=== PATIENT | female | born 1995 | race Hispanic/Latino ===

== ENCOUNTER 2021-06-19 20:04 | Emergency (ER) | payer BC ==
[~2021-06-19] VITALS: Ht 157.5 cm; Wt 133.0 kg
--- OUTSIDE RECORDS SUMMARY | 2021-06-19 20:12 | XMS ---
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 E.Mckayla VISIT COUNT (12 MO.) 1 [facility] TOTAL 1 NOTE: Visits indicate total known visits. ED/UCC VISIT TRACKING (12 MO.) 06/19/2021 20:05 [facility]CELLO Irizarry TYPE: Emergency COMPLAINT: - SOB INPATIENT VISIT TRACKING (12 MO.) 12/13/2020 17:15 [facility] [place] TYPE: Internal Medicine DIAGNOSES: - Pneumonia due to coronavirus disease 2019 - Hypoxemia - COVID-19 [email or web address]
== END 2021-06-19 22:10 | disposition home or self-care (01) ==
LOC: ED 20:04
DX: J40 Bronchitis, not specified as acute or chronic (principal); Z20.822 Contact with and (suspected) exposure to COVID-19; Z88.0 Allergy status to penicillin; Z88.8 Allergy status to other drugs, medicaments and biological substances
CPT/HCPCS: 99283; C9803; U0003

== ENCOUNTER 2022-12-10 06:46 | Day surgery (SDC) | payer OTHER ==
[~2022-12-10] VITALS: Ht 157.5 cm; Wt 133.0 kg
--- NOTE | ~2022-12-10 | OR ---
[facility] [address] [place], [place] [address] Draft DATE OF OPERATION: 12/10/2022 SURGEON: Graeme Henson, PROCEDURES: Hysteroscopy, dilation and curettage. PREOPERATIVE DIAGNOSES: Abnormal uterine bleeding, morbid obesity. POSTOPERATIVE DIAGNOSES: Abnormal uterine bleeding, morbid obesity. ANESTHESIA: Monitored anesthesia care. BLOOD LOSS: 15 mL. FINDINGS: Thickened appearing endometrial lining. Bilateral tubal ostia visualized. Polypoid appearance of lower uterine segment. INDICATIONS: Prolonged spotting, endometrial biopsy attempted in office but unable to pass through the internal cervical os. Risks, benefits, alternatives to hysteroscopy for endometrial tissue sampling were discussed. Reviewed OR versus office procedure, elected to proceed with OR. Consents were signed after all questions were answered to the best of my ability. PROCEDURE IN DETAIL: The patient was taken back to the operating room where she was positioned in dorsal lithotomy under monitored anesthesia care. She was prepped and draped in normal sterile fashion. Bladder was drained. Anterior lip of the cervix was grasped with an Allis clamp and easily sequentially dilated with Hegar dilators up to a size 7 to accommodate a 6.4 mm scope. Scope was then introduced into the uterine cavity without any difficulty or resistance with findings as noted above. MyoSure Lite device was used to circumferentially curette endometrial lining using Aquilex fluid management system and normal saline as a distending media. All instrumentation was then removed. Fluid deficit was noted to be 320 mL. Allis was removed from the cervix. Excellent PATIENT NAME: ANATOLY RICE OPERATIVE REPORT DATE OF : [birth year] REPORT #: [id number] PHYSICIAN: GRAEME HENSON DO PCP: MARILU YUNG PA-C REPORT IS CONFIDENTIAL AND NOT TO BE RELEASED WITHOUT AUTHORIZATION [facility] [address] [facility] [place] [facility] [place] [address] Draft hemostasis was noted. Sponge and instrument counts were correct. The patient was taken to recovery in stable and satisfactory condition with plans for followup in office after pathology available. DO JAKE Calvin/HIRAL /[id number] Copies: ~ PATIENT NAME: ANATOLY RICE OPERATIVE REPORT DATE OF : [birth year] REPORT #: [id number] PHYSICIAN: GRAEME HENSON DO PCP: MARILU YUNG PA-C REPORT IS CONFIDENTIAL AND NOT TO BE RELEASED WITHOUT AUTHORIZATION
[2022-12-10 06:59] VITALS: BP 137/71
[2022-12-10] MEDS ORDERED: COZAAR25 MG PO (07:00)
[2022-12-10] MEDS ORDERED: B COMPLEX1 EACH PO (07:01)
--- NOTE | 2022-12-10 10:05 | NUR ---
12/10/22 1005 Lila Lehman 1001-PATIENT ARRIVED TO PACU ON RA RR EVEN. PATIENT AWAKE DENIES PAIN OR NAUSEA REPORTS "JUST SOME CRAMPING" RA 98% RR EVEN. RICK PAD PLACED BENEATH CDI. SB/SR
[2022-12-10] MEDS ORDERED: IBUPROFEN800 MG PO (10:20)
[2022-12-10 10:45] VITALS: BP 143/89
--- NOTE | 2022-12-11 12:38 | PATH ---
[facility] [address] [place], [place] [address] Signed SPECIMEN(S): A ENDOMETRIAL CURETTINGS SPECIMEN SOURCE: A. ENDOMETRIAL CURETTINGS CLINICAL HISTORY: Pre: Abnormal uterine bleeding, dyspareunia. FINAL PATHOLOGIC DIAGNOSIS: Endometrial curettings: - Proliferative endometrium, negative for hyperplasia or atypia. JVR:jaun:C2NR MICROSCOPIC EXAMINATION: Histologic sections of all submitted blocks are examined by light microscopy. These findings, together with the gross examination, support the pathologic diagnosis. GROSS DESCRIPTION: The specimen, labeled and designated "Onofre Aragon, endometrial curettings," is received in formalin and consists of multiple fragments of red-mello soft tissue (2.9 x 2.2 x 0.4 cm in aggregate). The specimen is submitted entirely in cassette (A1). VB (under the direct supervision of a pathologist) The Gross Description was prepared using a voice recognition system. The report was reviewed for accuracy; however, sound-alike word errors, addition and/or deletions may occur. If there is any question about this report, please contact Client Services. PERFORMING LABORATORY: The technical component was performed by [facility], [address] [place] [id number] (CLIA# [id number]). Professional interpretation was performed by [facility], [address] [place] [id number] (CLIA#: [id number]). Diagnostician: Yuval Quigley MD Pathologist Electronically Signed 12/11/2022 Copies: PATIENT NAME: ANATOLY RICE PATHOLOGY DATE OF : [birth year] REPORT #: [id number] PHYSICIAN: SANDRA TAPIA PCP: MARILU YUNG PA-C REPORT IS CONFIDENTIAL AND NOT TO BE RELEASED WITHOUT AUTHORIZATION [address] [place], [place] [address] Signed ~ PATIENT NAME: ANATOLY RICE PATHOLOGY DATE OF : [birth year] REPORT #: [id number] PHYSICIAN: SANDRA PATHOLOGY PCP: MARILU YUNG PA-C REPORT IS CONFIDENTIAL AND NOT TO BE RELEASED WITHOUT AUTHORIZATION
== END 2022-12-10 10:55 | disposition home or self-care (01) ==
LOC: DS 06:46 → OPS 06:46 → DS 07:30 → OPS 07:30
PROVIDERS: ATTEND Obstetrics & Gynecology
PROC: 0UDB8ZZ Extraction of Endometrium, Via Natural or Artificial Opening Endoscopic (ICD-10-PCS; principal; 2022-12-10 08:45)
DX: N93.9 Abnormal uterine and vaginal bleeding, unspecified (principal); I10 Essential (primary) hypertension; E66.01 Morbid (severe) obesity due to excess calories; Z68.43 Body mass index [BMI] 50.0-59.9, adult
CPT/HCPCS: J1100; J1885; J2001; J2405; J2704; J3490; J7121

== ENCOUNTER 2023-11-28 00:33 | Emergency (ER) | payer OTHER ==
[~2023-11-28] VITALS: Ht 157.5 cm; Wt 132.2 kg
[~2023-11-28 00:33] MED LIST: B COMPLEX1 EACH PO; COZAAR25 MG PO; IBUPROFEN800 MG PO
[2023-11-28] MEDS ORDERED: METFORMIN HCL500 M1 PO (00:59)
[2023-11-28 01:14] LABS: BASOPHILS 1.3 % (0-2); EOSINOPHILS 1.2 % (0-6); HEMATOCRIT 37.3 % (35.0-50.0); HEMOGLOBIN 12.6 g/dL (12.0-18.0); LYMPHOCYTES 25.7 % (24-44); MCH 24.4 (27-36); MCHC 33.8 g/dl (30-36); MCV 72.3 fl (81-99); MONOCYTES 5.7 % (0-12); NEUTROPHILS 66.1 % (39-80); PLATELET COUNT 314 K/uL (140-440); RBC 5.16 M/ul (4.3-5.7); RDW 15.7 (10.5-15.0)
[2023-11-28 01:29] LABS: ALBUMIN 3.4 g/dL (3.4-5.0); ALBUMIN/GLOBULIN RATIO 0.89 (1.1-2.4); ANION GAP 12.4 (7-21); BILIRUBIN, TOTAL 0.5 ng/dL (0.2-1.0); BUN/CREATININE RATIO 10.46 (6.0-28.6); CALCIUM 8.7 mg/dL (8.5-10.1); CREATININE, SERUM 0.86 mg/dL (0.55-1.02); POTASSIUM 3.4 mmol/L (3.5-5.1); PROTEIN, TOTAL 7.2 g/dL (6.4-8.2)
[2023-11-28 02:20] VITALS: BP 148/95
== END 2023-11-28 02:20 | disposition home or self-care (01) ==
LOC: ED 00:33
PROVIDERS: Family Medicine
DX: T18.5XXA Foreign body in anus and rectum, initial encounter (principal); W44.8XXA Other foreign body entering into or through a natural orifice, initial encounter; Z88.0 Allergy status to penicillin; Z88.6 Allergy status to analgesic agent; Z79.84 Long term (current) use of oral hypoglycemic drugs
CPT/HCPCS: 36415; 74177; 80053; 84703; 85025; 99284-25; Q9967

== ENCOUNTER 2024-08-09 00:02 | Inpatient (IN) | payer OTHER ==
[~2024-08-09] VITALS: Ht 157.5 cm; Wt 127.0 kg
[~2024-08-09 00:02] MED LIST changes: +METFORMIN HCL500 M1 PO
[2024-08-09] MEDS ORDERED: LACTATED RINGER'S 1,000 ML IV PRN (00:15)
[2024-08-09] MEDS ORDERED: OXYTOCIN/0.9 % SODIUM CHLORIDE 30 UNITS/500 ML BAG IV SCH (00:15)
[2024-08-09] MEDS ORDERED: LACTATED RINGER'S 1,000 ML IV SCH (00:15)
[2024-08-09] MEDS ORDERED: miSOPROStoL 25 MCG TAB PV SCH (00:30)
[2024-08-09] MEDS ORDERED: CALCIUM CARBONATE 500 MG CHEW PO PRN (00:30)
[2024-08-09] MEDS ORDERED: MAGNESIUM HYDROXIDE/AL HYDROX 30 ML CUP PO PRN (00:30)
[2024-08-09 00:52] LABS: HEMATOCRIT 33.1 % (35.0-50.0); HEMOGLOBIN 11.2 g/dL (12.0-18.0); MCH 22.4 (27-36); MCHC 33.9 g/dl (30-36); MCV 66.2 fl (81-99); RBC 5.01 M/ul (4.3-5.7); RDW 16.1 (10.5-15.0)
[2024-08-09 01:02] LABS: CREATININE, RANDOM URINE 90.08 mg/dL (NOT ESTABLISHED); PROTEIN/CREATININE RATIO 0.11 mg/mg (0.010-0.107)
[2024-08-09 01:07] LABS: AMPHETAMINES, URINE NEGATIVE (NEGATIVE); BARBITURATES, URINE NEGATIVE (NEGATIVE); BENZODIAZEPINE, URINE NEGATIVE (NEGATIVE); BUPRENORPHINE, URINE NEGATIVE (NEGATIVE); CANNABINOID, URINE NEGATIVE (NEGATIVE); COCAINE, URINE NEGATIVE (NEGATIVE); ECSTASY, URINE NEGATIVE (NEGATIVE); FENTANYL, URINE NEGATIVE (NEGATIVE); METHADONE, URINE NEGATIVE (NEGATIVE); OPIATES, URINE NEGATIVE (NEGATIVE); OXYCODONE, URINE NEGATIVE (NEGATIVE); PHENCYCLIDINE, URINE NEGATIVE (NEGATIVE)
[2024-08-09 01:11] LABS: ALBUMIN 2.4 g/dL (3.4-5.0); ALBUMIN/GLOBULIN RATIO 0.55 (1.1-2.4); ANION GAP 15.7 (7-21); BILIRUBIN, TOTAL 0.3 ng/dL (0.2-1.0); CALCIUM 9.2 mg/dL (8.5-10.1); CREATININE, SERUM 0.75 mg/dL (0.55-1.02); POTASSIUM 3.7 mmol/L (3.5-5.1); PROTEIN, TOTAL 6.8 g/dL (6.4-8.2)
[2024-08-09 01:26] LABS: ABO O; RH POSITIVE
[2024-08-09 01:27] LABS: ANTIBODY SCREEN NEGATIVE
[2024-08-09] MEDS ORDERED: LABETALOL HCL 100 MG TAB PO SCH (09:00)
--- NOTE | 2024-08-09 12:20 | PR ---
[facility] [place] [facility] [address] [facility] [place], [place] [address] Signed Progress Notes IP Datetime Report Generated by CPN: 08/09/2024 12:20 PROGRESS NOTES: [id number] Impression: Normal Progression of Labor; Rupture of Membranes Procedures: Artificial ROM Plan: Continue Present Management; Augmentation VITAL SIGNS: [id number] Vital Signs: Reviewed; Within Normal Limits EXAM: [id number] Dilatation: 3.5 Effacement: 70 Station: -4 MEMBRANES: [id number] Membranes Status: Ruptured Comments: arom, WILL START PITOCIN FETUS A: [id number] FHR Baseline: 120 Variability: Moderate 6-25bpm Accelerations: 15X15 Decelerations: None Comments on Fetus A: Reassuring FETUS B: [id number] Signing Physician: Bela Haney MD Copies: ~ *Electronically Signed* 08/09/24 1220 BELA HANEY MD PATIENT NAME: ANATOLY RICE PROGRESS NOTE DATE OF : [birth year] PHYSICIAN: BELA HANEY MD RPT #: [id number] REPORT IS CONFIDENTIAL AND NOT TO BE RELEASED WITHOUT AUTHORIZATION
[2024-08-09] MEDS ORDERED: OXYTOCIN/0.9 % SODIUM CHLORIDE 500 ML IV SCH ×2 (13:45→17:15)
[2024-08-09] MEDS ORDERED: ROPIVACAINE 0.2% 200 ML BAG ONE (15:44)
[2024-08-09] MEDS ORDERED: fentaNYL citrate 100 MCG/2 ML VIAL ONE (15:44)
[2024-08-09] MEDS ORDERED: ePHEDrine sulfate 5 MG/ML SYRINGE IV PRN (16:30)
[2024-08-09] MEDS ORDERED: LACTATED RINGER'S 500 ML IV PRN (16:30)
[2024-08-09] MEDS ORDERED: ROPIVACAINE 0.2% 200 ML BAG EPIDURAL SCH (16:30)
[2024-08-09] MEDS ORDERED: LACTATED RINGER'S 2,000 ML IV ONE (16:30)
[2024-08-09] MEDS ORDERED: ACETAMINOPHEN 500 MG TAB PO ONE (20:30)
[2024-08-10] MEDS ORDERED: fentaNYL citrate 100 MCG/2 ML VIAL ONE ×2 (01:29→14:01)
[2024-08-10] MEDS ORDERED: Ropivacaine HCl 0.5% 30 ML VIAL ONE ×2 (01:29→13:36)
[2024-08-10] MEDS ORDERED: SODIUM CHLORIDE 0.9% 20 ML IV ONE (01:29)
[2024-08-10] MEDS ORDERED: ACETAMINOPHEN 325 MG TAB PO ONE (02:35)
[2024-08-10] MEDS ORDERED: dexmedeTOMIDine HCl 200 MCG/2 ML VIAL ONE (09:14)
[2024-08-10] MEDS ORDERED: TERBUTALINE SULFATE 1 MG/ML AMP SUB-Q ONE ×2 (12:00→13:15)
[2024-08-10] MEDS ORDERED: CEFAZOLIN SODIUM 3 GM/30 ML SYR IV SCH (13:22)
[2024-08-10] MEDS ORDERED: SOD+POT BICARB/CITRIC ACID 2 EA TABLET.EFF PO ONE (13:30)
[2024-08-10] MEDS ORDERED: LIDOCAINE 2% VISCOUS 6 ML SYR TOP ONE ×2 (13:30→15:00)
[2024-08-10] MEDS ORDERED: LIDOCAINE 2% W/ EPI 1:200,000 20 ML SDV ONE (13:35)
[2024-08-10] MEDS ORDERED: SODIUM CHLORIDE 0.9% 40 ML IV ONE (13:36)
[2024-08-10] MEDS ORDERED: ondansetron HCL 4 MG/2 ML VIAL ONE (13:37)
[2024-08-10] MEDS ORDERED: METOCLOPRAMIDE HCL 10 MG/2 ML SDV ONE (13:37)
[2024-08-10] MEDS ORDERED: FAMOTIDINE 20 MG/ 2 ML VIAL ONE (13:37)
[2024-08-10] MEDS ORDERED: DEXAMETHASONE SOD PHOS 4 MG/ML VIAL ONE (13:37)
[2024-08-10] MEDS ORDERED: OXYTOCIN 10 UNITS/ML VIAL ONE (13:37)
[2024-08-10] MEDS ORDERED: ePHEDrine sulfate 50 MG/ML AMP ONE ×2 (13:37→17:05)
[2024-08-10] MEDS ORDERED: MORPHINE SULFATE 1 MG/ML VIAL ONE (13:38)
[2024-08-10] MEDS ORDERED: LACTATED RINGER'S 1,000 ML IV ONE ×3 (13:47)
[2024-08-10] MEDS ORDERED: TRANEXAMIC ACID 1,000 MG/10 ML AMP ONE (14:25)
[2024-08-10] MEDS ORDERED: PROCHLORPERAZINE EDISYLATE 10 MG/2 ML VIAL ONE (14:28)
[2024-08-10] MEDS ORDERED: fentaNYL citrate 50 MCG/ML SDV IV PRN (14:30)
[2024-08-10] MEDS ORDERED: PROCHLORPERAZINE EDISYLATE 10 MG/2 ML VIAL IV PRN ×2 (14:30)
[2024-08-10] MEDS ORDERED: METOCLOPRAMIDE HCL 10 MG/2 ML SDV IV PRN ×2 (14:30)
[2024-08-10] MEDS ORDERED: diphenhydrAMINE HCL 25 MG CAP PO PRN (14:30)
[2024-08-10] MEDS ORDERED: HYDROmorphone HCL 1 MG/ML SYR IV PRN (14:30)
[2024-08-10] MEDS ORDERED: NALOXONE HCL 0.4 MG SYR IV PRN ×2 (14:30)
[2024-08-10] MEDS ORDERED: diphenhydrAMINE HCL 50 MG/ML VIAL IV PRN (14:30)
[2024-08-10] MEDS ORDERED: IBLOOD GLUCOSE TEST STRIP 1 EA TEST VI PRN (14:30)
[2024-08-10] MEDS ORDERED: droPERidol 5 MG/2 ML VIAL IV PRN (14:30)
[2024-08-10] MEDS ORDERED: ondansetron HCL 4 MG/2 ML VIAL IV PRN ×2 (14:30)
[2024-08-10] MEDS ORDERED: MORPHINE SULFATE 10 MG/ML VIAL IV PRN (14:30)
[2024-08-10] MEDS ORDERED: KETOROLAC TROMETHAMINE 30 MG/ML VIAL IV PRN (14:30)
[2024-08-10] MEDS ORDERED: LACTATED RINGER'S 1,000 ML IV SCH (14:59)
[2024-08-10] MEDS ORDERED: OXYTOCIN/0.9 % SODIUM CHLORIDE 500 ML IV SCH (15:00)
[2024-08-10] MEDS ORDERED: PROMETHAZINE HCL 25 MG TAB PO PRN (15:00)
[2024-08-10] MEDS ORDERED: HYDROCODONE/ACETA 5/325 TAB PO PRN (15:00)
[2024-08-10] MEDS ORDERED: PROMETHAZINE HCL 25 MG SUPP PR PRN (15:00)
[2024-08-10] MEDS ORDERED: bisacodyL 10 MG SUPP PR PRN (15:00)
--- NOTE | 2024-08-10 15:12 | NUR ---
08/10/24 1512 Radha Ybarra PATIENT IS SOMNOLENT. SHE WAKES EASILY TO MY VOICE. WHEN UNSTIMULATED, PATIENT RESTS, WITH HER EYES CLOSED. RESPIRATIONS ARE EVEN AND UNLABORED. NO, NON-VERBAL SIGNS OF PAIN NOTED. PATIENT REPORTS "A LITTLE" PAIN ALONG THE SURGICAL INCISION LINE.
[2024-08-10 15:22] VITALS: BP 107/57
[2024-08-10] MEDS ORDERED: ACETAMINOPHEN 1,000 MG/100 ML VIAL IV ONE (16:00)
[2024-08-10] MEDS ORDERED: KETOROLAC TROMETHAMINE 30 MG/ML VIAL IV ONE (16:00)
[2024-08-10] MEDS ORDERED: TRANEXAMIC ACID IN NACL,ISO-OS 100 ML IV ONE (16:18)
[2024-08-10] MEDS ORDERED: ETOMIDATE 40 MG/20 ML VIAL ONE (16:25)
[2024-08-10] MEDS ORDERED: TRANEXAMIC ACID IN NACL,ISO-OS 1,000 MG/100 ML PIGGYBACK IV ONE (16:30)
[2024-08-10 16:54] LABS: HEMOGLOBIN 8.5 g/dL (12.0-18.0); MCH 21.8 (27-36); MCHC 32.6 g/dl (30-36); MCV 66.9 fl (81-99); PLATELET COUNT 261 K/uL (140-440); RBC 3.89 M/ul (4.3-5.7); RDW 16.7 (10.5-15.0)
[2024-08-10 16:57] LABS: INR 1.11 (0.80-1.30); PROTIME 14.3 Sec (11.2-14.2)
[2024-08-10 16:59] LABS: PARTIAL THROMBOPLASTIN TIME 29.2 Sec (22.9-41.3)
[2024-08-10] MEDS ORDERED: PHENYLEPHRINE HCL 10 MG/ML VIAL ONE (17:05)
[2024-08-10 17:29] LABS: ABO O; RH POSITIVE
[2024-08-10 19:04] LABS: BASOPHILS 0.5 % (0-2); HEMATOCRIT 33.2 % (35.0-50.0); HEMOGLOBIN 11.4 g/dL (12.0-18.0); LYMPHOCYTES 3.2 % (24-44); MCH 24.7 (27-36); MCHC 34.2 g/dl (30-36); MCV 72.1 fl (81-99); MONOCYTES 5.2 % (0-12); NEUTROPHILS 91.1 % (39-80); PLATELET COUNT 220 K/uL (140-440); RBC 4.61 M/ul (4.3-5.7); RDW 22.9 (10.5-15.0)
[2024-08-10] MEDS ORDERED: KETOROLAC TROMETHAMINE 30 MG/ML VIAL IV SCH (20:00)
[2024-08-10 20:12] LABS: IS CROSSMATCH COMPATIBLE
[2024-08-10] MEDS ORDERED: SENNOSIDES/DOCUSATE 1 EA TAB PO SCH (21:00)
[2024-08-10 23:30] LABS: HEMATOCRIT 30.3 % (35.0-50.0); HEMOGLOBIN 10.3 g/dL (12.0-18.0); MCH 24.6 (27-36); MCHC 33.9 g/dl (30-36); MCV 72.4 fl (81-99); PLATELET COUNT 201 K/uL (140-440); RBC 4.18 M/ul (4.3-5.7); RDW 21.8 (10.5-15.0)
[2024-08-10 23:43] LABS: BANDS, MANUAL DIFF 2; LYMPHOCYTES, MANUAL DIFF 7; MONOCYTES, MANUAL DIFF 3; NEUTROPHILS, MANUAL DIFF 88
[2024-08-11] MEDS ORDERED: KETOROLAC TROMETHAMINE 30 MG/ML VIAL IV SCH (06:00)
[2024-08-11 06:06] LABS: HEMATOCRIT 26.9 % (35.0-50.0); HEMOGLOBIN 9.1 g/dL (12.0-18.0); MCH 24.5 (27-36); MCHC 33.9 g/dl (30-36); MCV 72.4 fl (81-99); PLATELET COUNT 197 K/uL (140-440); RBC 3.72 M/ul (4.3-5.7); RDW 21.3 (10.5-15.0)
[2024-08-11 06:16] LABS: SMEAR REVIEW BLOOD SEE COMMENTS
--- NOTE | 2024-08-11 08:58 | PR ---
[facility] [address] [facility] [place], [place] [address] Signed PP Progress Notes Datetime Report Generated by CPN: 08/11/2024 08:58 SUBJECTIVE: [id number] Pain: Within Normal Limits Nausea/Vomiting: Denies Flatus: Yes Vital Signs: [id number] Vital Signs: Reviewed; Within Normal Limits Notable Details: Significant hypotension EXAM: Ongoing Cardiovascular: Normal Respiratory: Normal Abdomen/Uterus: Normal Lochia: Normal Vulva/Perineum: Normal Breasts: Normal Extremities: Normal Incision: Normal Progress: Normal IMPRESSION/PLAN/PROCEDURES: [id number] Other Impression: Post Hemorrhage Plan: Continue Present Management; Antibiotic Therapy Procedures: Transfusion Progress Notes: 75 cc of blood overnight on Char, small amount of continued output this am. Will give antibiotics and leave in place a bit longer. BPs are WNL, labs reviewed H/H this am 9.1/26.9 s/p 3 U PRBC and FFP. Patient is asymptomatic. Catheter in place SCDs on. Signing Physician: Bela Haney MD Copies: ~ *Electronically Signed* 08/11/24 0858 BELA HANEY MD PATIENT NAME: ANATOLY RICE PROGRESS NOTE DATE OF : 95 PHYSICIAN: BELA HANEY MD RPT #: [id number] REPORT IS CONFIDENTIAL AND NOT TO BE RELEASED WITHOUT AUTHORIZATION
[2024-08-11] MEDS ORDERED: CEFAZOLIN SODIUM 3 GM/30 ML SYR IV ONE (09:00)
[2024-08-11 12:01] LABS: BASOPHILS 0.7 % (0-2); EOSINOPHILS 0.7 % (0-6); HEMATOCRIT 26.5 % (35.0-50.0); HEMOGLOBIN 9.1 g/dL (12.0-18.0); LYMPHOCYTES 13.4 % (24-44); MCH 24.8 (27-36); MCHC 34.5 g/dl (30-36); MCV 71.9 fl (81-99); MONOCYTES 8.1 % (0-12); NEUTROPHILS 77.1 % (39-80); PLATELET COUNT 193 K/uL (140-440); RBC 3.68 M/ul (4.3-5.7); RDW 21.4 (10.5-15.0)
--- NOTE | 2024-08-11 14:20 | PR ---
[facility] [address] [place], [place] [address] Signed PP Progress Notes Datetime Report Generated by CPKwadwo: 08/11/2024 12:24 SUBJECTIVE: [id number] Pain: Within Normal Limits Nausea/Vomiting: Denies Flatus: Yes Vital Signs: [id number] Vital Signs: Reviewed; Within Normal Limits Notable Details: Excellent urine output EXAM: Ongoing Cardiovascular: Normal Respiratory: Normal Abdomen/Uterus: Normal Lochia: Normal Vulva/Perineum: Not Done Breasts: Not Done CVA Tenderness: Not Done Extremities: Normal Incision: Normal Progress: Normal IMPRESSION/PLAN/PROCEDURES: [id number] Impression: Normal Progression Other Impression: hemorrhage; stable Plan: Continue Present Management; Antibiotic Therapy Procedures: Transfusion Progress Notes: PT seen and evaluated. Doing well. Bleeding scant (<25cc per RN), vitals normal, Hgb unchanged, and urine output excellent. Pt denies lightheadedness/dizziness. Will add fibrinogen to previously drawn labs. Plan removal of Char this afternoon/evening if bleeding remains scant and fibrinogen normal. Pt understands and agrees. Pt expresses gratitude for Dr. Haney and OB staff for her care through her pp hemorrhage. Signing Physician: Akanksha Torres DO Copies: ~ *Electronically Signed* 08/11/24 4549 AKANKSHA TORRES (HANS) DO PATIENT NAME: KOFFI CALVILLOANATOLY PROGRESS NOTE DATE OF : 95 PHYSICIAN: AKANKSHA TORRES (JD) DO RPT #: [id number] REPORT IS CONFIDENTIAL AND NOT TO BE RELEASED WITHOUT AUTHORIZATION
[2024-08-11] MEDS ORDERED: METOCLOPRAMIDE HCL 10 MG/2 ML SDV IV PRN (14:30)
[2024-08-11] MEDS ORDERED: ondansetron HCL 4 MG/2 ML VIAL IV PRN (14:30)
[2024-08-11] MEDS ORDERED: PROCHLORPERAZINE EDISYLATE 10 MG/2 ML VIAL IV PRN (14:30)
--- NOTE | 2024-08-11 17:32 | PR ---
[facility] [address] [facility] [place], [place] [address] Signed PP Progress Notes Datetime Report Generated by CPN: 08/11/2024 17:31 SUBJECTIVE: [id number] Pain: Within Normal Limits Nausea/Vomiting: Denies Flatus: Yes Bowel Movement: No Vital Signs: [id number] Vital Signs: Reviewed; Within Normal Limits Notable Details: Excellent urine output EXAM: Ongoing Cardiovascular: Normal Respiratory: Normal Abdomen/Uterus: Normal Lochia: Normal Vulva/Perineum: Normal Breasts: Not Done CVA Tenderness: Not Done Extremities: Normal Incision: Normal Progress: Normal Exam Comments: Fundus firm, scant blood on Char removal IMPRESSION/PLAN/PROCEDURES: [id number] Impression: Normal Progression Other Impression: PP hemorrhage; stable Plan: Continue Present Management; Antibiotic Therapy Other Plans: Char Removal Procedures: Transfusion Progress Notes: Pt seen and examind. Doing well. Char removed after reviewing scant blood loss, normal vitals and urine output. Scant blood w/ Char removal. Pt has no complaints. Will recheck AM labs. Signing Physician: Akanksha Torres DO Copies: ~ *Electronically Signed* 08/11/24 4508 AKANKSHA TORRES (HANS) DO PATIENT NAME: ANATOLY RICE PROGRESS NOTE DATE OF : 95 PHYSICIAN: AKANKSHA TORRES (JD) DO RPT #: [id number] REPORT IS CONFIDENTIAL AND NOT TO BE RELEASED WITHOUT AUTHORIZATION
[2024-08-11] MEDS ORDERED: IBUPROFEN 600 MG TAB PO SCH ×2 (18:00→20:00)
[2024-08-12] MEDS ORDERED: IBUPROFEN 600 MG TAB PO SCH
[2024-08-12 06:00] LABS: HEMATOCRIT 24.4 % (35.0-50.0); HEMOGLOBIN 8.3 g/dL (12.0-18.0); MCH 24.6 (27-36); MCHC 33.9 g/dl (30-36); MCV 72.6 fl (81-99); RBC 3.37 M/ul (4.3-5.7); RDW 22.2 (10.5-15.0)
--- NOTE | 2024-08-12 08:50 | PR ---
[facility] [address] [place], [place] [address] Signed PP Progress Notes Datetime Report Generated by CPN: 08/12/2024 08:50 SUBJECTIVE: [id number] Pain: Within Normal Limits Nausea/Vomiting: Denies Flatus: Yes Bowel Movement: Yes Vital Signs: [id number] Vital Signs: Reviewed; Within Normal Limits Notable Details: Excellent urine output EXAM: Ongoing Cardiovascular: Normal Respiratory: Normal Abdomen/Uterus: Normal Lochia: Normal Vulva/Perineum: Not Done Breasts: Not Done CVA Tenderness: Normal Extremities: Normal Incision: Normal Progress: Normal Exam Comments: Fundus firm U-2 nontender. Scant lochia IMPRESSION/PLAN/PROCEDURES: [id number] Impression: Normal Progression Other Impression: PP hemorrhage; stable Plan: Continue Present Management Other Plans: Char Removal Procedures: Transfusion Progress Notes: Pt seen and examined. Doing well. Scant bleeding overnight. No lightheadedness / dizziness. Hgb slightly decreased today but no tachycardia or evidence of ongoing bleeding. Started oral iron and will consider IV iron tomorrow if indicated. Repeat CBC in AM. Fibrinogen normal. . Pain minimal. No other questions or concerns. Anticipate d/c home tomorrow. Signing Physician: Akanksha Torres DO *Electronically Signed* 08/12/24 0821 AKANKSHA TORRES (HANS) DO PATIENT NAME: KOFFI CALVILLOANATOLY PROGRESS NOTE DATE OF : 95 PHYSICIAN: AKANKSHA TORRES (JD) DO RPT #: [id number] REPORT IS CONFIDENTIAL AND NOT TO BE RELEASED WITHOUT AUTHORIZATION
[2024-08-12] MEDS ORDERED: FERROUS SULFATE 325 MG TAB PO SCH (17:00)
[2024-08-13 05:36] LABS: HEMATOCRIT 24.5 % (35.0-50.0); HEMOGLOBIN 8.3 g/dL (12.0-18.0); MCH 24.7 (27-36); MCHC 33.7 g/dl (30-36); MCV 73.3 fl (81-99); PLATELET COUNT 209 K/uL (140-440); RBC 3.35 M/ul (4.3-5.7); RDW 22.2 (10.5-15.0)
[2024-08-13 06:02] LABS: SMEAR REVIEW BLOOD SEE COMMENTS
--- NOTE | 2024-08-13 08:48 | PR ---
[facility] [address] [place], [place] [address] Signed PP Progress Notes Datetime Report Generated by CPKwadwo: 08/13/2024 08:48 SUBJECTIVE: [id number] Pain: Within Normal Limits Nausea/Vomiting: Denies Flatus: Yes Bowel Movement: Yes Vital Signs: [id number] Vital Signs: Reviewed; Within Normal Limits Notable Details: BPs normal off anti-hypertensive. Will hold BP meds for now EXAM: Ongoing Cardiovascular: Normal Respiratory: Normal Abdomen/Uterus: Normal Lochia: Normal Vulva/Perineum: Not Done Breasts: Not Done CVA Tenderness: Normal Extremities: Normal Incision: Normal Progress: Normal Exam Comments: Fundus firm U-2 nontender. Incision healing well IMPRESSION/PLAN/PROCEDURES: [id number] Impression: Normal Progression Other Impression: PP hemorrhage; stable Plan: Discharge Other Plans: Char Removal Procedures: Transfusion Progress Notes: Pt seen and examined. Doing well. Ambulating, voiding, and tolerating full diet. Pain and lochia minimal. well. No lightheadedness / dizziness. Hgb stable. Desires d/c home. Reviewed d/c instructions and meds. Will hold nifedipine for now. F/U 2-3 days for BP check and will home bps daily. All questions answered. Undecided on pp contraception. Signing Physician: Akanksha Trores DO *Electronically Signed* 08/13/24 0848 AKANKSHA TORRES (HANS) DO PATIENT NAME: KOFFI CALVILLOANATOLY PROGRESS NOTE DATE OF : 95 PHYSICIAN: AKANKSHA TORRES (JD) DO RPT #: [id number] REPORT IS CONFIDENTIAL AND NOT TO BE RELEASED WITHOUT AUTHORIZATION
[2024-08-13 10:52] LABS: IS CROSSMATCH COMPATIBLE
== END 2024-08-13 10:05 | disposition home or self-care (01) | DRG 787 ==
LOC: FBCO 00:02 → FBC 00:04 → FBCO 07:00 → DS 07:00 → FBC 08-11 17:55
PROVIDERS: Obstetrics & Gynecology; ADMIT Obstetrics & Gynecology; ATTEND Obstetrics & Gynecology
PROC: 10D00Z1 Extraction of Products of Conception, Low, Open Approach (ICD-10-PCS; principal; 2024-08-09)
PROC: 10907ZC Drainage of Amniotic Fluid, Therapeutic from Products of Conception, Via Natural or Artificial Opening (ICD-10-PCS; 2024-08-09)
DX: O32.4XX0 Maternal care for high head at term, not applicable or unspecified (principal); O72.1 Other immediate postpartum hemorrhage; Z37.0 Single live birth; Z3A.38 38 weeks gestation of pregnancy; Z88.1 Allergy status to other antibiotic agents; Z88.8 Allergy status to other drugs, medicaments and biological substances; Z79.899 Other long term (current) drug therapy
CPT/HCPCS: 01961; 36415; 64488; 76937; 76942; 80053; 80307; 82565; 82570; 83615; 84156; 84550; 85025; 85027; 85060; 85384; 85610; 85730; 86850; 86900; 86901; 86922; A9270; J0131; J0690; J0780; J1100; J1200; J1885; J2274; J2371; J2405; J2590; J2765; J2795; J3010; J3105; J7121; P9016; P9059